=== PATIENT | male | born 1965 | race Two or more races ===

== ENCOUNTER 2018-01-21 13:46 | Emergency (ER) | payer OTHER ==
[~2018-01-21] VITALS: Ht 170.2 cm; Wt 83.9 kg
[2018-01-21 14:01] VITALS: BP 146/88
[2018-01-21 16:16] LABS: APPEARANCE,URINE CLOUDY; BILIRUBIN, URINE NEGATIVE (NEGATIVE); GLUCOSE, URINE (UA) 3+ (NEGATIVE); KETONES,URINE 1+ (NEGATIVE); LEUKOCYTE ESTERASE ,URINE 3+ (NEGATIVE); NITRITE,URINE POSITIVE (NEGATIVE); PH,URINE 6 (4.5-8.0); PROTEIN,URINE 2+ (NEGATIVE); UROBILINOGEN,URINE NORMAL MG/DL (0.0-1.0)
[2018-01-21 16:22] LABS: COLOR,URINE YELLOW
[2018-01-21 16:26] LABS: ANION GAP 9 mmol/L (5-15); BLOOD UREA NITROGEN 13 mg/dL (7-18); CALCIUM 9.7 MG/DL (8.5-10.1); CARBON DIOXIDE 30 MMOL/L (21-32); CHLORIDE 102 MMOL/L (98-107); CREATININE 1.3 MG/DL (0.55-1.30); POTASSIUM 4.6 MMOL/L (3.5-5.1); SODIUM 140 MMOL/L (136-145)
[2018-01-21 16:32] LABS: ALANINE AMINOTRANSFERASE 53 U/L (12-78); ALBUMIN 3.8 G/DL (3.4-5.0); ALBUMIN/GLOBULIN RATIO 0.7 (1.0-2.7); ALKALINE PHOSPHATASE 57 U/L (46-116); ASPARTATE AMINO TRANSFERASE 27 U/L (15-37); BILIRUBIN,TOTAL 0.8 MG/DL (0.2-1.0); CREATINE KINASE 116 U/L (26-308)
[2018-01-21 16:33] LABS: BASOPHILS % (AUTO) 0.6 % (0.0-2.0); EOSINOPHILS % (AUTO) 0.7 % (0.0-3.0); HEMATOCRIT 44.1 % (42.0-52.0); HEMOGLOBIN 15.3 G/DL (14.2-18.0); MEAN CORPUSCULAR VOLUME 95 FL (80-99); MONOCYTES % (AUTO) 9.5 % (1.0-10.0); NEUTROPHILS % (AUTO) 72.3 % (45.0-75.0); PLATELET COUNT 229 K/UL (150-450); RED BLOOD COUNT 4.63 M/UL (4.70-6.10); WHITE BLOOD COUNT 11.5 K/UL (4.8-10.8)
[2018-01-21] MEDS ORDERED: CEPHALEXIN500 M1 ORAL (17:43)
--- NOTE | 2018-01-21 17:43 | Emergency Room Report ---
History of Present Illness General Chief Complaint: Abdominal Pain Source: Patient Present Illness HPI healthy 52 yo male presents with one week for dark urine, fatigue. Now mild scrotal pain and groin discomfort. Moderate severity. Gradual onset. Worse with movement. 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-[facility] Past Medical History: No Stated History Review of Systems Constitutional: Reports: malaise; Denies: fever Cardiovascular: Denies: chest pain Gastrointestinal: Reports: abdominal pain Musculoskeletal: Denies: back pain All Other Systems: negative except mentioned in HPI Physical Exam Vital Signs Date Time Temp Pulse Resp B/P (MAP) Pulse Ox O2 Delivery O2 Flow Rate FiO2 01/21/18 14:01 98.3 94 18 146/88 96 Room Air 98.2 Sp02 EP Interpretation: reviewed, normal General Appearance: no apparent distress, alert, GCS 15, non-toxic Head: normocephalic, atraumatic Eyes: bilateral eye normal inspection ENT: hearing grossly normal, normal pharynx, no angioedema, normal voice Neck: full range of motion, supple/symm/no masses Respiratory: chest non-tender, lungs clear, normal breath sounds, speaking full sentences Cardiovascular #1: regular rate, rhythm, no edema Gastrointestinal: normal bowel sounds, non tender, soft, non-distended, no guarding, no rebound Genitourinary: normal inspection, no CVA tenderness Musculoskeletal: back normal, gait/station normal, normal range of motion Neurologic: alert, oriented x3, responsive, motor strength/tone normal, sensory intact, speech normal Psychiatric: judgement/insight normal, memory normal, mood/affect normal Skin: normal color, no rash, warm/dry, well hydrated Lymphatic: no adenopathy Medical Decision Making Diagnostic Impression: Primary Impression: UTI (urinary tract infection) CT confirmed cystitis, UTI rx: cephalexin recommended tylenol ibuprofen OTC for pain relief normal appendix on CT No signs of obstructive uropathy Last Vital Signs Date Time Temp Pulse Resp B/P (MAP) Pulse Ox O2 Delivery O2 Flow Rate FiO2 01/21/18 14:01 98.4 94 18 146/88 96 Room Air 98.4 Disposition: HOME, SELF-CARE Condition: Stable Scripts No Active Prescriptions or Reported Meds Referrals: NON PHYSICIAN (PCP) [place] SETHI Jan 21, 2018 17:42
[2018-01-21] MEDS ORDERED: Cephalexin 500mg cap ORAL ONE (17:45)
[2018-01-21 17:50] VITALS: BP 142/84
--- NOTE | 2018-01-22 08:54 | Diagnostic Imaging Report ---
Indication: Right lower quadrant pain Technique: Spiral acquisitions obtained through the abdomen and pelvis. No oral contrast utilized, per emergency room physician request No IV contrast utilized, per referring physician request.. Multiplanar reconstructions were generated. Total dose length product 847.05 mGycm. CTDIvol(s) 14.79 mGy. Dose reduction achieved using automated exposure control Comparison: None Findings: Normal appendix. No evidence of diverticulosis or diverticulitis. No small bowel distention. No free or loculated intraperitoneal air or fluid is evident. Distal esophagus, stomach, duodenum are unremarkable. There are small fat-containing bilateral inguinal hernias. There are small bilateral scrotal hydroceles Lack of IV contrast limits assessment of solid organs. The liver is mildly hypoattenuating. No focal abnormality. Gallbladder, bile ducts, pancreas, spleen, adrenals, right kidney are all unremarkable. Left kidney demonstrates a 1 cm cyst. No retroperitoneal or mesenteric mass or adenopathy. No pelvic mass or adenopathy. Apparent mild bladder wall thickening, probably an artifact of under distention. The prostate contains calcifications. The included lung bases are clear. The bones are unremarkable except for degenerative changes of the lumbosacral junction. Impression: Apparent bladder wall thickening, most likely artifact of under distention. Correlate with any symptoms of possible cystitis No acute abnormality otherwise Incidental findings as noted, including small fat-containing bilateral inguinal hernias, small bilateral scrotal hydroceles, left renal cyst Subcentimeter low-attenuation left renal lesion, too small to characterize, most likely benign cyst This agrees with the preliminary interpretation provided overnight by [facility]. The CT scanner at [facility] is accredited by the [employer] and the scans are performed using protocols designed to limit radiation exposure to as low as reasonably achievable to attain images of sufficient resolution adequate for diagnostic evaluation.
== END 2018-01-21 17:50 | disposition home or self-care (01) ==
LOC: EMR 16:19
DX: N39.0 Urinary tract infection, site not specified (principal)
CPT/HCPCS: 36415; 74176; 80053; 81003; 82550; 83690; 85025; 87086; 87181; 99283

== ENCOUNTER 2018-02-07 19:01 | Emergency (ER) | payer OTHER ==
[~2018-02-07] VITALS: Ht 170.2 cm; Wt 83.9 kg
[~2018-02-07 19:01] MED LIST: CEPHALEXIN500 M1 ORAL
[2018-02-07 20:30] VITALS: BP 139/95
[2018-02-07] MEDS ORDERED: NITROFURANTOIN100 M2 ORAL (20:35)
[2018-02-07] MEDS ORDERED: PHENAZOPYRIDIN200 MG ORAL (20:35)
[2018-02-07 20:40] VITALS: BP 138/95
--- NOTE | 2018-02-07 21:35 | Emergency Room Report ---
History of Present Illness General Chief Complaint: Medication Refill Source: Patient Present Illness HPI 52-year-old male presents emergency department complaining of dysuria and dark- colored urine 3 days. Patient reports that he visited the emergency department a week ago and was placed on oral antibiotics. Patient states his symptoms improve but never quite went away. Patient states that he is worried that the infection has not cleared. Patient denies fevers or chills he states that this dysuria started today. He denies urinary retention. Patient states that he has an appointment with his doctor next week. Denies low back pain, abdominal pain or tenderness. Denies, fatigue, polyuria, CHARLES or muscle pains/ cramps. reports that he took all of his abx as prescribed. Allergies: Coded Allergies: No Known Allergies (Unverified , 01/21/18) Patient History Past Medical History: see triage record Past Surgical History: none Pertinent Family History: none Reviewed Nursing Documentation: PMH: Agreed; PSxH: Agreed Nursing Documentation-PM[facility] Past Medical History: No Stated History Review of Systems All Other Systems: negative except mentioned in HPI Physical Exam Vital Signs Date Time Temp Pulse Resp B/P (MAP) Pulse Ox O2 Delivery O2 Flow Rate FiO2 02/07/18 19:10 98.2 84 16 138/95 95 Room Air 98.2 Sp02 EP Interpretation: reviewed, normal General Appearance: well appearing, no apparent distress, alert, GCS 15, non- toxic Head: normocephalic, atraumatic Eyes: bilateral eye normal inspection, bilateral eye PERRL ENT: hearing grossly normal, normal voice Neck: full range of motion Respiratory: speaking full sentences Cardiovascular #1: regular rate, rhythm Gastrointestinal: normal bowel sounds, non tender, soft Genitourinary: normal inspection, no CVA tenderness Musculoskeletal: back normal, gait/station normal, normal range of motion Neurologic: alert, oriented x3, responsive, motor strength/tone normal, sensory intact, normal gait, speech normal, grossly normal Psychiatric: judgement/insight normal Skin: normal color, no rash, warm/dry, well hydrated Medical Decision Making PA Attestation Dr. Cueva is my supervising Physician whom patient management has been discussed with. Diagnostic Impression: Primary Impression: UTI (urinary tract infection) Qualified Codes: N30.01 - Acute cystitis with hematuria ER Course 52-year-old male presents emergency department complaining of dysuria and dark- colored urine 3 days. Patient reports that he visited the emergency department a week ago and was placed on oral antibiotics. Patient states his symptoms improve but never quite went away. Patient states that he is worried that the infection has not cleared. Patient denies fevers or chills he states that this dysuria started today. He denies urinary retention. Patient states that he has an appointment with his doctor next week. Denies low back pain, abdominal pain or tenderness. Denies, fatigue, polyuria, CHARLES or muscle pains/ cramps. reports that he took all of his abx as prescribed. Ddx considered but are not limited to UTi , Pyelo, STI, Stone, Cystitis Vital signs: are WNL, pt. is afebrile H&PE are most consistent with UTI --I reviewed the culture and sensitivity report from this patient's most recent urinalysis. It shows sensitivity to Macrobid and therefore I will prescribe him some. ORDERS: - UA labs are attached -- Positive for Infection : Nitrite positive, many bacteria and elevated inflammatory markers. -Most likely persistent E.Coli ED INTERVENTIONS: None required at this time. DISCHARGE: At this time pt. is stable for d/c to home. Will provide printed patient care instructions, and any necessary prescriptions. Care plan and follow up instructions have been discussed with the patient prior to discharge. Labs Test 02/07/18 21:05 Urine Color Pale yellow Urine Appearance Cloudy Urine pH 6.5 (4.5-8.0) Urine Specific [place] 1.020 (1.005-1.035) Urine Protein 2+ (NEGATIVE) Urine Glucose (UA) Negative (NEGATIVE) Urine Ketones Negative (NEGATIVE) Urine Blood 1+ (NEGATIVE) Urine Nitrite Positive (NEGATIVE) Urine Bilirubin Negative (NEGATIVE) Urine Urobilinogen Normal MG/DL (0.0-1.0) Urine Leukocyte Esterase 3+ (NEGATIVE) Urine RBC 2-4 /HPF (0 - 0) Urine WBC 30-40 /HPF (0 - 0) Urine Squamous Epithelial Cells None /LPF (NONE/OCC) Urine Bacteria Many /HPF (NONE) Last Vital Signs Date Time Temp Pulse Resp B/P (MAP) Pulse Ox O2 Delivery O2 Flow Rate FiO2 02/07/18 19:10 98.2 84 16 138/95 95 Room Air 98.2 Disposition: HOME, SELF-CARE Condition: Stable Scripts Phenazopyridine Hcl* (PYRIDIUM*) 200 Mg Tablet 200 MG ORAL THREE TIMES A DAY, #9 TAB 0 Refills Prov: Rosalinda Pablo 02/07/18 Nitrofurantoin Monohyd/M-Cryst* (MACROBID 100 MG*) 100 Mg Capsule 100 MG ORAL EVERY 12 HOURS for 5 Days, #10 CAP Prov: Rosalinda Pablo 02/07/18 Referrals: NON PHYSICIAN (PCP) Patient Instructions: Urinary Tract Infection, [id number] Additional Instructions: Take medications as directed. Follow up with a Primary Care Provider in 3-5 days, even if your symptoms have resolved. Return sooner to ED if new symptoms occur, or current symptoms become worse. - Please note that this Emergency Department Report was dictated using [employer] painting supervisor technology software, occasionally this can lead to erroneous entry secondary to interpretation by the dictation equipment. Rosalinda Pablo Feb 07, 2018 21:35
[2018-02-07 21:48] LABS: APPEARANCE,URINE CLOUDY; BILIRUBIN, URINE NEGATIVE (NEGATIVE); COLOR,URINE PALE YELLOW; GLUCOSE, URINE (UA) NEGATIVE (NEGATIVE); KETONES,URINE NEGATIVE (NEGATIVE); LEUKOCYTE ESTERASE ,URINE 3+ (NEGATIVE); NITRITE,URINE POSITIVE (NEGATIVE); PH,URINE 6.5 (4.5-8.0); PROTEIN,URINE 2+ (NEGATIVE); UROBILINOGEN,URINE NORMAL MG/DL (0.0-1.0)
== END 2018-02-07 21:31 | disposition home or self-care (01) ==
LOC: EMR 21:23
DX: N30.01 Acute cystitis with hematuria (principal)
CPT/HCPCS: 81003; 87086; 87181; 99283